=== PATIENT | female | born 1965 | race Hispanic/Latino ===

== ENCOUNTER 2017-12-22 06:26 | Day surgery (SDC) | payer BC ==
[2017-12-21 14:32] VITALS: BMI 26.5
--- NOTE | 2017-12-22 07:19 | CP.SDSHP ---
Same Day Surgery H & P - History Proposed Procedure: Right shoulder arthroscopy, possible rotator cuff tear, possible acromioplasty/synovectomy Pre-Op Diagnosis: RIght shoulder partial rotator cuff tear, subacromial bursitis - Previous Medical/Surgical History Comments: no PMH Previous Surgical History: csection x 2 - Allergies Allergies: Allergies No Known Allergies Allergy (Verified 12/21/17 14:32) - Physical Exam Vital Signs: Vital Signs 12/22/17 12/22/17 07:05 07:11 Temperature 98.4 F Pulse Rate 97 H 97 H Respiratory 18 Rate Blood Pressure 131/85 O2 Sat by Pulse 98 Oximetry Mental Status: Alert & Oriented x3 Heart: WNL Lungs: WNL GI: WNL - {Optional Preform as Required} Integument: WNL Ortho: Other (+radial pulse, limited painful ROM of right shoulder, sensation intact, full ROM neck without pain) Other Pertinent Findings: MRI on chart, reviewed - Impression Impression: 52F RHD with right shoulder pain x 3-4 months with rotator cuff tear for arthroscopy Pt. Evaluated Today:Candidate for Anesthesia & Procedure: Yes - Date & Time Date: 12/22/17 Time: 07:19 Short Stay Discharge - Short Stay Discharge Admitting Diagnosis/Reason for Visit: M751.1/ [id number]/ Disposition: HOME/ ROUTINE Referrals: Dago Garcia III, MD [Primary Care Provider] - Past Patient History - Past Medical History & Family History Past Medical History?: No - Past Social History Smoking Status: Never Smoked - CARDIAC Hx Cardiac Disorders: No - PULMONARY Hx Respiratory Disorders: No - NEUROLOGICAL Hx Neurological Disorder: No - HEENT Hx HEENT Problems: No - RENAL Hx Chronic Kidney Disease: No - ENDOCRINE/METABOLIC Hx Endocrine Disorders: No - HEMATOLOGICAL/ONCOLOGICAL Hx Blood Disorders: No - INTEGUMENTARY Hx Dermatological Problems: No - MUSCULOSKELETAL/RHEUMATOLOGICAL Hx Musculoskeletal Disorders: No - GASTROINTESTINAL Hx Gastrointestinal Disorders: No - GENITOURINARY/GYNECOLOGICAL Hx Genitourinary Disorders: No - PSYCHIATRIC Hx Emotional Abuse: No Hx Physical Abuse: No - SURGICAL HISTORY Hx Surgeries: Yes Hx Section: Yes (x2) - ANESTHESIA Hx Anesthesia: Yes Hx Anesthesia Reactions: No Hx Malignant Hyperthermia: No Has any member of the family had a problem w/ anesthesia?: No
[2017-12-22] MEDS ORDERED: Propofol 10 mg/ml Inj (20 ML) ONE (07:21)
[2017-12-22] MEDS ORDERED: Midazolam 2 MG/2 ML VIAL ONE (07:21)
[2017-12-22] MEDS ORDERED: Lidocaine 4% (Laryng-O-Jet) Kit MM ONE (07:22)
[2017-12-22] MEDS ORDERED: Lidocaine 1% 5ml Abboject IV ONE (07:22)
[2017-12-22] MEDS ORDERED: Succinylcholine 200 mg/10 ml Inj IV ONE (07:22)
[2017-12-22] MEDS ORDERED: Rocuronium 10 mg/ml (5 ml) ONE (07:24)
[2017-12-22] MEDS ORDERED: Ropivacaine 0.5% 30ML IV ONE (07:32)
[2017-12-22] MEDS ORDERED: Thrombin Topical 5,000 Int Units Spray Kit ONE (07:44)
[2017-12-22] MEDS ORDERED: Bupivacaine 0.5% Inj(30mL) ONE (07:44)
[2017-12-22] MEDS ORDERED: Absorbable Gelatin Sponge Size 100 ONE (07:44)
[2017-12-22] MEDS ORDERED: APROTININ/FIBRINOGEN(TISSEEL) ONE (07:44)
[2017-12-22] MEDS ORDERED: EPINEPHrine 1 mg/ml (1:1000) Inj ONE ×2 (07:45→10:07)
[2017-12-22] MEDS ORDERED: Dexamethasone 4 mg/1 ml ONE (08:22)
[2017-12-22] MEDS ORDERED: Lactated Ringer's 1,000 ML IV ONE (09:05)
[2017-12-22] MEDS ORDERED: Lidocaine 1% Inj (20ml) IJ ONE (09:05)
[2017-12-22] MEDS ORDERED: EPINEPHrine 1 mg/ml (1:1000) Inj IV ONE (09:10)
[2017-12-22] MEDS ORDERED: Bacitracin Ointment 30 GM TUBE ONE (10:39)
[2017-12-22] MEDS ORDERED: Oxycodone/Acetaminophen 5/325 mg Tab PO PRN (10:43)
[2017-12-22] MEDS ORDERED: HYDROmorphone 0.5 mg/0.5 ml ISec IVP PRN (11:02)
--- NOTE | 2017-12-22 11:10 | PCM.ANESB1 ---
Interscalene Block - Brachial Plexus Date of Procedure: 12/22/17 Anesthesiologist: Boby Pre-Procedure Diagnosis: Right rotator cuff tear Post-Procedure Diagnosis: Same Procedure Performed: Interscalene Block of Brachial Plexus Right - Procedure Interscalene Block of Brachial Plexus: This procedure was explained to the patient that it is for post-operative pain management. Consent was obtained after a thorough discussion with the patient regarding the benefits and possible complications of local anesthetic block of the Brachial Plexus at the Interscalene area. The patient was brought to the Operating Room and standard monitors were applied. Time out was held with the circulating nurse to confirm the correct surgery and appropriate block. After applying Oxygen by nasal cannula and administering IV Sedation, the patient's head was gently rotated away from the _right operative shoulder and the anterior scalene groove was carefully palpated. The ultrasound transducer was then applied to the skin in the transverse plane and the brachial plexus was visualized lateral to the carotid artery and in between the anterior and middle scalene muscles. After identification,the anterior lateral portion of the neck was prepped with chloraprep and Lidocaine 1% was injected subcutaneously for topical analgesia. At this point, a # 22 gauge Stimuplex 2 inches insulated needle was inserted into the interscalene groove and directed in a caudal and midline direction. The needle was inserted lateral to the ultrasound transducer in-plane towards the brachial plexus in a [id number] direction. Needle advancement was performed carefully under direct ultrasound visualization. Nerve stimulator was used and twitched of the affected extremity including the hand brachialis muscles, biceps and the deltoid was obtained at a current of _0.4____MA. After repeated negative aspiration,__2___cc of__0.5%___, ropivicaine were injected and this was followed with _28____cc of __0.5___% ____ropivicaine_ . Under ultrasound guidance the local anesthetics were observed surrounding the roots of the brachial plexus. The needle was removed intact. The patient had stable vital signs, was conscious and in no apparent distress. The patient tolerated the interscalene block of the bracheal plexus well with stable vital signs and was prepared for subsequent surgery.
[2017-12-22] MEDS ORDERED: Lactated Ringer's 1,000 ML IV SCH (11:15)
[2017-12-22 11:40] VITALS: RESP 18
[2017-12-22 14:11] VITALS: BP 126/82; PULSE 89; TEMP 98.7; O2SAT 98
--- NOTE | 2017-12-22 14:27 | PCM.SURG1 ---
Surgeon's Initial Post Op Note - Surgeon's Notes Surgeon: Dago Garcia MD Manager Custom: Magdiel Eng PA-C, Dania VIRK Type of Anesthesia: General Endo Anesthesia Administered By: Wil Glover MD Pre-Operative Diagnosis: Painful right shoulder Operative Findings: Grade 3 rotator cuff tear, biceps tendon avulsion, SLAP lesion, Calcific bursitis in the subacromial space, AC joint arthropathy Post-Operative Diagnosis: Grade 3 rotator cuff tear, biceps tendon avulsion, SLAP lesion, Calcific bursitis in the subacromial space, AC joint arthropathy Operation Performed: Primary repair of the rotator cuff, intra-articular biceps tenodesis, repair of SLAP lesion, partial distal clavicle resection, acromioplasty, bursectomy, and excision of calcium deposit in the subacromial space Specimen/Specimens Removed: None Estimated Blood Loss: EBL {In ML}: 10 Post-Op Condition: Good Date of Surgery/Procedure: 12/22/17 Time of Surgery/Procedure: 07:50 (Incision time-09:05, end time- 10:45)
--- NOTE | 2017-12-22 22:42 | OP ---
PROCEDURE DATE: 12/22/2017 PREOPERATIVE DIAGNOSIS: Internal derangement of the right shoulder. POSTOPERATIVE DIAGNOSES: 1. Grade 3 tear of the right rotator cuff. 2. Tear of the glenoid labrum extending anterior to posteriorly to the root of the biceps tendon. 3. Biceps tendon avulsion instability. 4. Acromioclavicular joint arthropathy. 5. Calcific tendinopathy and bursitis in the subacromial space. 6. Subacromial impingement. PROCEDURE: 1. Arthroscopically assisted rotator cuff repair of the right shoulder. 2. Arthroscopic biceps tenodesis, intraarticular. 3. Arthroscopic repair of superior labral tear from anterior to posterior lesion. 4. Arthroscopic partial distal claviculectomy to include the articular surface and distal aspect of the clavicle. 5. Arthroscopic acromioplasty. 6. Surgical arthroscopy, bursectomy, excision of calcium and lysis of adhesions in the subacromial space. SURGEON: Dago Garcia MD APPARATUS OPERATOR: Dania Molina, certified registered nursing delivery driver assistant. ANESTHESIA: General spinal anesthesia. ANESTHESIA ADMINISTERED BY: Wil Landis MD COMPLICATIONS: None. DRAINS: None. OPERATIVE INDICATION: Hannah Staley is a 52-year-old woman who presents with a long history greater than 8 months of pain and restricted range of motion of the right shoulder. The patient underwent intraarticular injection, subacromial injection of the shoulder x2 without improvement. MRI examination was accomplished. MRI examination did reveal evidence of injury of the rotator cuff as well as AC joint arthropathy subacromial spurring. MRI examination did not elucidate the labral tear well, but at surgery was clearly evident, not a sublabral foramen with clear separation of the labrum and the separation of the biceps tendon. Pros, cons, risks, and benefits of surgical approach discussed, the possibility of mechanical failure, infection, thromboembolic disease, stiffness, secondary or tertiary surgery discussed. The patient understands the discomfort and wished the surgery to be accomplished. OPERATIVE PROCEDURE: After having obtained informed consent in the above fashion, after the satisfactory induction of general and regional anesthesia, after having identified the side, site, and procedure, and a critical pause/time-out, the patient identified as Hannah Staley in the modified Jaquez chair position. The right upper extremity is prepped and free draped in the usual fashion for upper extremity surgery. After sterilely prepping and draping, after having identified side, site, and procedure, and a critical pause/time-out, the patient identified as Hannah Staley in the modified Jaquez chair position with the arm in the upper extremity immobilizer. The right upper extremity was prepped and free draped in the usual fashion for upper extremity surgery. After having identified side, site, and procedure, and critical pause/time-out, after the satisfactory induction of the anesthetic by Dr. Landis, after having identified side, site, and procedure, and a critical pause/time-out, the patient identified as Hannah Staley. A topographic anatomy of the shoulder was marked, the clavicle, the coracoid process, and the spine and the scapula. The joint is insufflated with 10 mL of 1% lidocaine without epinephrine using #11 blade followed by spreading, followed by introduction of blunt trocar, the arthroscope was introduced. There was found to be evidence of synovitis as well as the aforementioned injury to the labrum. There was evidence of labral instability and evidence of biceps tendon instability. Please refer to the video photographs. A thorough debridement and partial synovectomy of the glenohumeral joint was accomplished with the arthroscope posteriorly. This having been accomplished, intraarticular biceps tenodesis was accomplished initially. This having been accomplished, the Nitinol wire was placed through the root of the biceps tendon, triangulation have been accomplished and a posterolateral portal have been described using #18 gauge spinal needle, followed by #11 blade, followed by spreading with the arthroscope posteriorly. The Nitinol wire was brought out posteriorly. The fiber tape was placed and the fiber tape was brought out anteriorly with the arthroscope posteriorly, both limbs of the fiber tape and brought out anteriorly. This having been accomplished, the avulsion from the superior aspect of the glenoid was noted. Drilling was accomplished using the drill bit and the drill hole was debrided using the 3.4 mm [employer] suction punch with the arthroscope posteriorly, the push lock anchor was loaded and impacted and the intraarticular biceps tenodesis was accomplished. It should be noted that the superior aspect of the glenoid had been roughened and this also stabilizes the immediate posterior aspect of the labrum. The labrum anteriorly is probed and there was found to be evidence of the separation, not a sublabral foramen, but this is developed using the periosteum elevator. The Nitinol wire was placed around the labrum and brought out posteriorly. The fiber tape was loaded, brought out anteriorly. The push lock anchor was loaded. Drilling had been accomplished at approximately the 1 o'clock position. The push lock anchor was impacted and the labrum was thus repaired. Using the 3.4 mm Dyonics suction punch, chondroplasty was accomplished. The arm was now placed in dependency and the arthroscope was placed in the subacromial space. A fourth mid and lateral portal was accomplished in a so-called [place] technique using #18-gauge spinal needle followed by #11 blade followed by spreading with the arthroscope posteriorly. Using a combination of the arthroscopic shaver, an extensive debridement of the subacromial space accomplished with the arthroscope posteriorly. The subacromial space is carefully debrided using the 5.2 mm Dyonics suction punch and the arthroscopic shaver. With the arthroscope posteriorly, the inferior aspect of the acromion is debrided carefully. With the arthroscope posteriorly, there was found to be evidence of impingement and there is a marked bursitis. There was evidence of calcium in the area of the greater tuberosity. It should be noted that the MRI examination had been reviewed and plantar TL and AR x-rays have been reviewed, which did reveal evidence of compromise in the area of the greater tuberosity with the arthroscope posteriorly. Extensive debridement of the subacromial space was accomplished. With the arthroscope posteriorly, a thorough debridement of the subacromial space accomplished and lysis of adhesions. With the arthroscope posteriorly, thorough debridement of lysis of adhesions in the subacromial space was accomplished as well as excision of calcium. This having been accomplished, a careful and thorough partial bursectomy and lysis of adhesions of the subacromial space was accomplished. This having been accomplished, there was found to be a complete tear of the rotator cuff at the insertion into the greater tuberosity footprint. This was developed using a combination of the arthroscopic wand and the 5.2 mm Dyonics suction punch. The arm was placed in some abduction and internal rotation. This having been accomplished, again it should be noted that the triangulation initially had been accomplished using #18 gauge spinal needle anteriorly taking great care to stay lateral to the coracoid process. This having been accomplished, the Scorpion was placed and the inverted V type suture was used with the arm in abduction, internal rotation to repair the rotator cuff. The fiber tape was deployed from the lateral portal to the rotator cuff. It was brought out then laterally. The second limb was placed as well. The superior limb was brought out superiorly through an additional portal using #18 gauge spinal needle followed by #11 blade as the area for landing. This having been accomplished, both after the second limb had been placed through the rotator cuff, both limbs of the suture were placed superiorly through that portal. The footprint is prepared using the fiber wire. The Passport is placed to avoid any soft tissue bridges. The corkscrew anchor was impacted and with the arm in abduction, rotation, the rotator cuff is repaired with excellent coverage. Wound was thoroughly irrigated at this point in time with the arthroscope posteriorly, using the arthroscopic bur and partial acromioplasty was accomplished using the arthroscopic bur with the arthroscope mid laterally, a partial distal claviculectomy was accomplished using the bur to include the distal articular surface of the distal aspect of the clavicle, partial distal claviculectomy having thus been accomplished, partial acromioplasty having been accomplished, rotator cuff repair having been accomplished, the wound was thoroughly irrigated. Closures in layers with interrupted 2-0 Vicryl, 3-0 Vicryl and nylon for the portals and a compression dressing and shoulder abduction splint was applied. Dago Garcia MD
== END 2017-12-22 15:10 | disposition home or self-care (01) ==
LOC: H.OPSURG 06:26
PROVIDERS: ATTEND Orthopaedic Surgery
DX: M75.51 Bursitis of right shoulder (principal); M75.111 Incomplete rotator cuff tear or rupture of right shoulder, not specified as traumatic; M25.311 Other instability, right shoulder; M75.41 Impingement syndrome of right shoulder
CPT/HCPCS: 23130; 29823; 29827; 29828; 88305; C1713; J0171; J0330; J0690; J1100; J2250; J2405; J2704; J2765; J3010; J7030; J7120